=== PATIENT | male | born 1995 | race Caucasian/White ===

== ENCOUNTER 2017-12-18 20:18 | Emergency (ER) | payer OTHER ==
[~2017-12-18] VITALS: Ht 177.8 cm; Wt 76.8 kg
[2017-12-18] MEDS ORDERED: LORazepam 1MG TABLET ONE (21:24)
[2017-12-18] MEDS ORDERED: LORazepam 1MG TABLET PO ONE (21:30)
[2017-12-18 23:22] VITALS: BP 119/67
== END 2017-12-18 23:24 | disposition home or self-care (01) ==
LOC: ED 21:47
DX: F41.1 Generalized anxiety disorder (principal)
CPT/HCPCS: 71045; 93005; 99284

== ENCOUNTER 2018-07-24 11:48 | Emergency (ER) | payer OTHER ==
[~2018-07-24] VITALS: Ht 177.8 cm; Wt 73.3 kg
--- NOTE | 2018-07-24 11:56 | NUR ---
EKG performed in triage
--- NOTE | 2018-07-24 12:00 | NUR ---
ASSUMED CARE OF PT AT THIS TIME. PT CURRENTLY RESTING ON [employer]. NAD NOTED. SKIN PWD. RESP EVEN AND EQAUL. PT AO X 4. PT C/O LEFT SIDED CP WITH "PINS AND NEEDLES" FEELING ON THE LEFT SIDE. NEURO INTACT. SENSATION INACT. PT LOCKWOOD W/O DIFFICULTY. PT ON CONT BP AND O2 MONITORS. CALL LIGHT WITHIN REACH. WILL CONT TO MONITOR PT.
[2018-07-24] MEDS ORDERED: ASPIRIN 81 MG TABLET CHEW ONE (12:18)
[2018-07-24] MEDS ORDERED: MAALOX/HYOSCYAMINE/LIDOCAINE 45 ML BTL ONE (12:29)
[2018-07-24] MEDS ORDERED: ASPIRIN 81 MG TABLET CHEW PO ONE (12:30)
--- NOTE | 2018-07-24 12:32 | NUR ---
GI COCKTAIL ADMINISTERED
--- NOTE | 2018-07-24 12:40 | NUR ---
PT REFUSED TO HAVE LAB DRAWS. RN EDUCATED RISKS OF REFUSING TO PT INCLUDING MISSING ELEVATED TROPONIN, PT VERBALIZED UNDERSTANDING. ERMD LAW AT BEDSIDE ADN REDISCUSSED LABS. PT VERBALIZED UNDERSTADNING A SECOND TIME AND CONTINUED TO REFUSE TO HAVE LABS DRAWN. PT AO X 4. SKIN PWD. RESP EVEN AND EQAUL. NAD NOTED AT THIS TIME. PT ON CONT BP, CARDIAC AND O2 MONITORS. CALL LIGHT WITHIN REACH. WILL CONT TO MONITOR PT.
--- NOTE | 2018-07-24 12:52 | NUR ---
NO CHANGE TO SENSATION IN LEFT CHEST, DESCRIBED DULL INTERMITTENT PAIN 1/10.
--- NOTE | 2018-07-24 13:29 | NUR ---
HR NOTED TO BE IN THE 40'S, IRREGULARLY REGULAR RHYTHM. ERMD LAW NOTIFIED. REPEAT EKG PERFORMED. PT AO X 4. SKIN PWD. RESP EVEN AND UNLABORED. PT DENIES ANY CHANGE IN PAIN OR SENSATION. PT ON CONT BP, CARDIAC AND O2 MONITORS. CALL LIGHT WITHIN REACH. WILL CONT TO MONITOR PT.
[2018-07-24] MEDS ORDERED: MAALOX/HYOSCYAMINE/LIDOCAINE 45 ML BTL PO ONE (13:30)
[2018-07-24] MEDS ORDERED: LORazepam 1MG TABLET ONE (13:44)
[2018-07-24] MEDS ORDERED: LORazepam 1MG TABLET PO ONE (14:00)
[2018-07-24 14:23] VITALS: BP 123/64
== END 2018-07-24 14:32 | disposition home or self-care (01) ==
LOC: ED 12:15
DX: R07.89 Other chest pain (principal); R20.2 Paresthesia of skin
CPT/HCPCS: 71045; 93005; 99284